=== PATIENT | male | born 1970 | race Caucasian/White ===

== ENCOUNTER 2020-08-22 10:30 | Outpatient (RCR) | payer OTHER, SELFPAY | END 2020-09-12 11:16 | disposition other institution (70) | LOC: HO.PT 10:30 | PROVIDERS: PCP Internal Medicine; Visit Provider Internal Medicine | DX: M54.41 Lumbago with sciatica, right side (principal) | CPT/HCPCS: 97110; 97162 ==

== ENCOUNTER 2020-10-24 09:17 | Outpatient (REF) | payer OTHER, SELFPAY | END 2020-10-24 09:18 | disposition home or self-care (01) | LOC: HO.MRI 09:17 | PROVIDERS: PCP Internal Medicine; Visit Provider Internal Medicine | DX: Z13.89 Encounter for screening for other disorder (principal) ==

== ENCOUNTER → 2020-12-19 09:01 | Outpatient (BNVA) | payer OTHER, SELFPAY | PROVIDERS: PCP Internal Medicine; Visit Provider Physician Assistant | CPT/HCPCS: Q3014 ==

== ENCOUNTER 2021-03-25 10:37 | Day surgery (SDC) | payer OTHER, SELFPAY ==
--- NOTE | 2021-03-21 08:46 | HO.ANESPROP2 ---
Documented by User: Naz Bullard 03/21/21 08:46 HPI - Anesthesia Eval Consult details Narrative: 50yo M for Colonoscopy methadone daily PMFSH Active Problems Active Problems: All Active Problems (Updated 02/05/21 @ 15:34 by Jalyn Cortes) HTN (hypertension) (Acute) Encounter for screening colonoscopy (Acute) HIV (human immunodeficiency virus infection) (Acute) Past Medical History Medical History COVID-19 vaccine administered HIV (human immunodeficiency virus infection) HTN (hypertension) Hx of substance abuse Family History Family History Mother Hypertension Social History Social History Household Members: Significant Other Alcohol intake: never Patient Tobacco Use Status: Current everyday Tobacco user Tobacco use type: Cigarette Cigarettes Per Day: 3 Years Smoked: 39 Smoked in Last 30 Days: Yes Use of substances other than those prescribed or required for medical reasons: No Substance Use Type: Crack/Cocaine, Former Substance User and Heroin Are you DNR?: No Advance Directives: No Advance Directives Information Provided: Yes Current occupational status: unemployed and disabled Meds Allergies Allergy/AdvReac Type Severity Reaction Status Date / Time No Known Allergies Allergy Verified 12/19/20 09:02 Home Medications Medication Instructions Recorded Confirmed Last Taken Type bictegravir 50 mg-emtricitabine 1 tab PO DAILY 12/19/20 02/05/21 03/25/21 06:00 History 200 mg-tenofovir alafenam 25 mg tablet hydrochlorothiazide 12.5 mg tablet 12.5 mg PO DAILY 12/19/20 02/05/21 Unknown History methadone 10 mg/5 mL oral solution 70 mg PO DAILY ml 12/19/20 02/05/21 03/25/21 06:00 History Exam Exam Date and Time: March 21, 2021 0846 Assessment and Plan Assessment Anesthesia Assessment: Chart Reviewed Documented by User: Tamara Valero 03/25/21 11:52 FOR[facility]LY [facility], [facility] Past Medical History Medical History COVID-19 vaccine administered HIV (human immunodeficiency virus infection) HTN (hypertension) Hx of substance abuse Family History Family History Mother Hypertension Family history of problems with anesthesia: No Surgical History History of Problems with Anesthesia: No (Never had anesthesia) Social History Social History Household Members: Significant Other Alcohol intake: never Patient Tobacco Use Status: Current everyday Tobacco user Tobacco use type: Cigarette Cigarettes Per Day: 3 Years Smoked: 39 Smoked in Last 30 Days: Yes Use of substances other than those prescribed or required for medical reasons: No Substance Use Type: Crack/Cocaine, Former Substance User and Heroin Are you DNR?: No Advance Directives: No Advance Directives Information Provided: Yes Current occupational status: unemployed and disabled Meds Allergies Allergy/AdvReac Type Severity Reaction Status Date / Time No Known Allergies Allergy Verified 12/19/20 09:02 Home Medications Medication Instructions Recorded Confirmed Last Taken Type bictegravir 50 mg-emtricitabine 1 tab PO DAILY 12/19/20 02/05/21 03/25/21 06:00 History 200 mg-tenofovir alafenam 25 mg tablet hydrochlorothiazide 12.5 mg tablet 12.5 mg PO DAILY 12/19/20 02/05/21 Unknown History methadone 10 mg/5 mL oral solution 70 mg PO DAILY ml 12/19/20 02/05/21 03/25/21 06:00 History Exam Height,Weight and Vital Signs: Vital Signs Temp Pulse Resp BP Pulse Ox 03/25/21 11:14 98.8 F 64 16 101/71 97 Airway Mallampati Class: II TM Dist: >3cm Neck ROM: Full Loose/Missing/Broken Teeth: Yes (Edentulous) Heart: RRR Lungs: CTAB Assessment and Plan Assessment Anesthesia Assessment: Anesthesia Plan Discussed and Chart Reviewed Final Anesthetic Review NPO: Yes ASA Class: II Final Preanesthetic Review: No Changes in Pt Med Stat, Meds/Allgs Chart Reviewed, Consent Obtained/Reviewed and Anes Risks/Benef Reviewed Patient Risk: Low Procedure Risk: Low Assessment/Block/Sedation in SS: Assess/Block/Sedation-SS Anesthetic Plan Anesthetic Plan: MAC: Disposition: Standard PACU
[2021-03-25 11:14] VITALS: BP 101/71; PULSE 64; RESP 16; TEMP 37.1; O2SAT 97; BMI 33.9
[2021-03-25] MEDS: Lactated Ringers 1,000 ML 100 ML IVCONT (11:30)
--- NOTE | 2021-03-25 12:31 | W.PM.OPN ---
Operative Note Operative Note Date of Service: 03/25/21 Narrative: Pre-op diagnosis: Colon cancer screening Post-op diagnosis: other (Colon polyps, diverticulosis, hemorrhoids) Procedure: COLONOSCOPY TO CECUM WITH BIOPSIES AND SNARE POLYPECTOMY Consent: Indications for the procedure and potential complications of bleeding, perforation, reaction to medications and missed diagnosis were discussed with the patient and informed consent was obtained. Instrument: Olympus PCF H 190 L variable stiffness pediatric colonoscope Monitoring: Vital signs and clinical assessment, intermittent blood pressure monitoring, continuous EKG monitoring, Pulse oximetry and Carbon Dioxide monitoring were done throughout the procedure. Colon withdrawl time was 20 minutes. Procedure: The patient was placed in the left lateral decubitis position and pre-procedure medications were administered. After a digital rectal examination of the ano-rectum, the video colonoscope was inserted into the rectum and advanced through the colon to the cecum. The colonoscope was slowly withdrawn in a retrograde panoramic fashion and the colon mucosa was carefully examined including a retroflexed view of the rectum. Findings and interventions are described below. Procedure Difficulty: Without difficulty Findings: Terminal Ileum: Not evaluated Cecum: Two 5-7 mm sessile polyps removed with a cold snare. Three 2-3 mm sessile polyps removed with the cold biopsy Ascending Colon: Normal Transverse Colon: A 3-4 mm sessile polyp removed with cold biopsy. Descending Colon: Moderate diverticulosis Sigmoid Colon: Moderate diverticulosis Rectum: A 2 cm ulcerated, pedunculated polyp at 15 cms - removed with a hot snare Ano-rectum: Moderate internal hemorrhoids Colon preparation: Good after some irrigation Impression and Post Procedure Diagnosis: Colonoscopy Findings: Seven polyps removed Moderate diverticulosis seen in the left colon Moderate hemorrhoids on retroflexed exam. Plan: Await pathology results Patient has an appointment on 04/10/21 in the GI Clinic with ITALO Rodriguez. Repeat Colonoscopy interval based on path results - in 3-5 years if polyps are adenomatous and 10 years if polyps are hyperplastic. Above findings were reviewed with the patient and colon polyps and diverticulosis handouts were given in the discharge area Surgeon: Josué Pace MD Anesthesia: MAC (Amy Reyes CRNA) Was an Medical Records Library Professor used for this Procedure?: Yes Medical Records Library Professor: Omar Acevedo Estimated blood loss (mL): 0 Pathology: other (A- CECAL POLYPS B- TRANSVERSE COLON POLYP C- RECTAL POLYP AT 10CM) Condition: stable Disposition: PACU
--- NOTE | 2021-03-25 12:31 | MHC.SHP ---
Pre-Procedural Eval Section A The patient is an INPATIENT: No The History & Physical has been completed within 30 days and I have reviewed it.: No Section B Chief Complaint: screening Details of Present Illness: Colon cancer screening Relevant Family History (Specify if Yes): No Relevant Social History: Tobacco Use Present Medications: see Short Stay Collaborative assessment Medical History: Significant History (HIV (human immunodeficiency virus infection)) History of Previous Operations: No relevant previous surgery Allergies: Allergies Allergy/AdvReac Type Severity Reaction Status Date / Time No Known Allergies Allergy Verified 12/19/20 09:02 Review of Systems Sugical H&P ROS: Negative: Constitution, Cardiovascular, Respiratory and Gastrointestinal Exam Surgical H&P Exam: Normal: Heart, Normal: Lungs, Normal: Extremities and Normal: Abdomen Plan Diagnosis/Plan: Unchanged I have reviewed the history and physical and performed a pertinent physical examination on my patient. No changes have occurred unless specified.
[2021-03-25 13:22] VITALS: BP 114/77; PULSE 63; RESP 16; TEMP 37.4; O2SAT 99
[2021-03-25 13:36] VITALS: BP 132/87; PULSE 60; RESP 16; TEMP 36.4; O2SAT 100
== END 2021-03-25 13:54 | disposition home or self-care (01) ==
PROVIDERS: PCP Internal Medicine; Visit Provider Internal Medicine Gastroenterology
PROC: 0DJD8ZZ Inspection of Lower Intestinal Tract, Via Natural or Artificial Opening Endoscopic (ICD-10-PCS; CPT 45378; principal; 2021-03-25 12:40)
DX: Z12.11 Encounter for screening for malignant neoplasm of colon (principal); K63.5 Polyp of colon; K62.1 Rectal polyp; K57.30 Diverticulosis of large intestine without perforation or abscess without bleeding; K64.8 Other hemorrhoids; B20 Human immunodeficiency virus [HIV] disease; I10 Essential (primary) hypertension; F11.10 Opioid abuse, uncomplicated; F17.210 Nicotine dependence, cigarettes, uncomplicated; Z79.899 Other long term (current) drug therapy
CPT/HCPCS: 45385; 45380; 88305

== ENCOUNTER → 2021-04-10 13:11 | Outpatient (BNVA) | payer OTHER, SELFPAY | PROVIDERS: Visit Provider Physician Assistant | DX: Z13.89 Encounter for screening for other disorder (principal) | CPT/HCPCS: Q3014 ==

== ENCOUNTER 2021-05-28 10:00 | Outpatient (REF) | payer OTHER, SELFPAY ==
--- NOTE | ~2021-05-28 | US_ITS ---
EXAMINATION: US ABDOMEN LIMITED CLINICAL INFORMATION: ALAS (nonalcoholic steatosis). COMPARISON: None TECHNIQUE: Real-time imaging of the right upper quadrant abdominal viscera. FINDINGS: PANCREAS: Majority obscured by overlying bowel gas. No definite suspicious mass or peripancreatic fluid seen. LIVER: Increased in echogenicity with a coarsened appearance consistent with hepatocellular disease. The liver is normal in size. Within the right lobe there is a hypoechoic 5 mm structure.Within the right lobe there is also noted to be a 7 mm hypoechoic circumscribed lesion. These are too small to characterize and MRI would be of help in further evaluation if clinically indicated. There is no intrahepatic biliary duct dilatation seen. GALLBLADDER: Normal. The gallbladder is physiologically distended without evidence of stones, sludge, polyps, wall thickening or pericholecystic fluid. COMMON BILE DUCT: Normal in caliber measuring 0.3 cm in diameter. RIGHT KIDNEY: Normal. No hydronephrosis. No renal calculi or focal parenchymal lesions. The kidney measures 8.8 cm in maximum dimension. FREE FLUID: None. US/US abdomen limited IMPRESSION: Increased echogenicity of the liver with heterogeneous appearance consistent with hepatocellular disease. 2 hypoechoic lesions within the right lobe of liver largest being 7 mm in diameter for which MRI would be of help in further evaluation.
== END 2021-05-28 10:01 | disposition home or self-care (01) ==
LOC: HO.HMGCX 10:00
PROVIDERS: Visit Provider Internal Medicine Gastroenterology
DX: K75.81 Nonalcoholic steatohepatitis (NASH) (principal)
CPT/HCPCS: 76705

== ENCOUNTER 2021-07-17 09:35 | Outpatient (REF) | payer OTHER, SELFPAY ==
[2021-07-17 10:36] LABS: MANUAL DIFF FLAG NO
[2021-07-17 10:46] LABS: Basophils Percent Auto 0.5 % (0-2); Eosinophils Absolute Auto 0.1 X10*3/uL (0.0-0.4); Eosinophils Percent Auto 1.4 % (0-4); Hematocrit 43.4 % (42-52); Hemoglobin 14.1 g/dl (14.0-18.0); Imm Gran Abs Auto 0.01 X10*3/uL (0.00-0.03); Imm Gran Pct Auto 0.2 % (0.0-0.4); Lymphocytes Absolute Auto 1.5 X10*3/uL (1.2-4.9); Lymphocytes Percent Auto 33.5 % (20-40); Mean Corpuscular HGB Conc 32.5 g/dl (31.0-36.0); Mean Corpuscular Hemoglobin 29.6 pg (27.0-33.0); Mean Platelet Volume 11.7 fL (9.4-12.4); Monocytes Absolute Auto 0.5 X10*3/uL (0.1-1.2); Monocytes Percent Auto 10.5 % (2-11); Neutrophils Absolute Auto 2.4 X10*3/uL (2.0-8.3); Neutrophils Percent Auto 53.9 % (45-73); Platelet Count 187 X10*3/uL (160-400); Red Blood Count 4.77 X10*6/uL (4.60-5.80); Red Cell Distribution Width 13.6 % (11.0-16.0); White Blood Count 4.4 X10*3/uL (4.8-10.8)
[2021-07-17 10:48] LABS: Prothrombin Time 11.6 SEC (9.9-13.0)
[2021-07-17 11:21] LABS: Alanine Aminotransferase 30 U/L (0-40); Albumin Level 4.3 g/dL (3.5-5.0); Alkaline Phosphatase 64 U/L (39-117); Anion Gap 12 (12-20); Aspartate Amino Transferase 24 U/L (5-37); Bilirubin Total 0.3 mg/dL (0.0-1.0); Blood Urea Nitrogen 8 mg/dL (9-16); Calcium 9.9 mg/dL (8.4-10.2); Carbon Dioxide 31 mmol/L (22-29); Chloride 106 mmol/L (96-108); Estimated Glomerular Filt Rate > 60; Glucose Random 80 mg/dL (60-115); Potassium 4.7 mmol/L (3.3-5.1); Sodium 144 mmol/L (135-145); Total Protein 8.1 g/dL (6.5-8.0)
[2021-07-18 04:29] LABS: Syphilis Screen Nonreactive (Nonreactive)
[2021-07-18 15:30] LABS: HIV RNA PCR Qn Copies <20 NOT DETECTED copies/mL (NOT DETECTED); HIV RNA PCR Qn Log Copies <1.30 NOT DETECTED (NOT DETECTED)
[2021-07-18 18:32] LABS: HCV Log PCR <1.18 NOT DETECTED Log IU/mL (NOT DETECTED); HepC Viral Load <15 NOT DETECTED IU/mL (NOT DETECTED)
[2021-07-19 23:57] LABS: TS Negative Control Passed; TS Panel A 0; TS Panel B 3; TS Positive Control Passed; TSpotTB Negative (Negative)
[2021-07-21 11:56] LABS: Absolute CD3 Count 923 cells/uL (840-3060); Absolute CD4 Count 336 cells/uL (490-1740); Absolute CD8 Count 603 cells/uL (180-1170); Absolute Lymphocytes 1457 cells/uL (850-3900); CD4 CD8 Ratio 0.56 (0.86-5.00); Percent CD3 Cells 63 % (57-85); Percent CD4 Cells 23 % (30-61); Percent CD8 Cells 41 % (12-42)
[2021-07-21 12:51] LABS: Alpha Fetoprotein 6.2 ng/mL (<6.1)
== END 2021-07-17 09:36 | disposition home or self-care (01) ==
LOC: HO.LAB 09:35
PROVIDERS: Absent Provider Internal Medicine; PCP Internal Medicine; Visit Provider Internal Medicine Gastroenterology
DX: B20 Human immunodeficiency virus [HIV] disease (principal); K75.81 Nonalcoholic steatohepatitis (NASH)
CPT/HCPCS: 36415; 80053; 82105; 85025; 85610; 86359; 86360; 86481; 86780; 87522; 87536

== ENCOUNTER 2021-08-07 14:32 | Outpatient (REF) | payer OTHER, SELFPAY ==
--- NOTE | ~2021-08-07 | CT_ITS ---
EXAMINATION: CT ABDOMEN (LIVER) WITHOUT AND WITH IV CONTRAST CLINICAL INFORMATION: 51-year-old male with history of nonalcoholic steatosis. Hypoechoic liver lesion seen on ultrasound examination. Hepatomegaly. COMPARISON: Ultrasound abdomen from 05/28/2021. TECHNIQUE: A volumetric helical CT acquisition of the abdomen was performed without and with intravenous administration of 85 mL Omnipaque 350. The contrast enhanced images were acquired in the arterial and portal venous phases. Coronal and sagittal reformatted images were generated at the technologist workstation. This CT examination was performed using dose optimization techniques as appropriate, variously including the following: *Automated exposure control *Adjustment of mA and/or kV according to patient size (this includes techniques or standardized protocols for targeted exams where dose is matched to indication/reason for exam; i.e. extremities or head) *Use of iterative reconstruction technique DLP: 618 mGy-cm. FINDINGS: LUNG BASES: Normal. LIVER, GALLBLADDER, AND BILIARY TREE: Liver is normal in size. The capsular surface of the liver has nodular contour, consistent with cirrhosis. The liver parenchyma is diffusely hypodense compared to the spleen on the arterial and venous phase images. Mild steatosis is suspected. There are no arterial phase hyperenhancing liver lesions. Also, no discrete nodules are detected on the venous phase images. There are no foci of contrast enhancement with subsequent washout or capsular features. Gallbladder is normal. No intrahepatic or extrahepatic bile duct dilatation. PANCREAS: Normal. No evidence of pancreatic mass, edema or ductal dilatation. SPLEEN: Normal. ADRENAL GLANDS: Normal. KIDNEYS AND URETERS: Kidneys are normal in size and enhance symmetrically. No renal mass or perinephric fluid. There are a few calyceal stones of the right and left lower pole that measure up to 0.3 cm in maximum dimension. No large renal calculi or hydronephrosis. The visualized proximal ureters are normal. BOWEL AND PERITONEUM: Stomach and visualized bowel are normal. No focal bowel wall thickening. No mesenteric fat stranding or ascites. No pneumoperitoneum. ABDOMINAL WALL: Unremarkable. LYMPH NODES: No pathologic sized lymph nodes. VASCULATURE: Abdominal aorta is normal in caliber with the celiac trunk, SMA and renal arteries are widely patent. Inferior vena cava is normal. Splenic, portal and hepatic veins are normal; no venous thrombosis. MUSCULOSKELETAL: Unremarkable. CT/CT liver 3 phase IMPRESSION: * There appears to be mild steatosis of the cirrhotic liver. * There are no discrete nodules within the liver. No evidence of hepatocellular carcinoma. * Small bilateral renal stones are detected.
[2021-08-07] MEDS: iohexoL 350 MG/ML 100 ML INFUS..BTL 85 ML IV (15:24)
== END 2021-08-07 14:33 | disposition home or self-care (01) ==
LOC: HO.CT 14:32
PROVIDERS: Visit Provider Internal Medicine Gastroenterology
DX: R16.0 Hepatomegaly, not elsewhere classified (principal); K75.81 Nonalcoholic steatohepatitis (NASH)
CPT/HCPCS: 74170; Q9967

== ENCOUNTER 2023-12-02 12:16 | Outpatient (REF) | payer OTHER, SELFPAY ==
[2023-12-02 13:18] LABS: MANUAL DIFF FLAG NO
[2023-12-02 13:37] LABS: Basophils Percent Auto 0.4 % (0-2); Eosinophils Percent Auto 1.1 % (0-4); Hematocrit 39.8 % (42.0-52.0); Hemoglobin 12.9 g/dl (14.0-18.0); Imm Gran Abs Auto 0.01 X10*3/uL (0.00-0.03); Imm Gran Pct Auto 0.4 % (0.0-0.4); Lymphocytes Percent Auto 38.7 % (20-40); Mean Corpuscular HGB Conc 32.4 g/dl (31.0-36.0); Mean Corpuscular Hemoglobin 28.1 pg (27.0-33.0); Mean Corpuscular Volume 86.7 fL (80.0-98.0); Mean Platelet Volume 10.7 fL (9.4-12.4); Monocytes Absolute Auto 0.3 X10*3/uL (0.1-1.2); Monocytes Percent Auto 11.7 % (2-11); Neutrophils Absolute Auto 1.3 x10*3/uL (2.0-8.3); Neutrophils Percent Auto 47.7 % (45-73); Platelet Count 160 X10*3/uL (160-400); Red Blood Count 4.59 X10*6/uL (4.60-5.80); White Blood Count 2.7 X10*3/uL (4.8-10.8)
[2023-12-02 13:53] LABS: Alanine Aminotransferase 26 U/L (0-40); Albumin Level 3.4 g/dL (3.5-5.0); Alkaline Phosphatase 94 U/L (39-117); Anion Gap 12 (12-20); Aspartate Amino Transferase 31 U/L (5-37); Blood Urea Nitrogen 11 mg/dL (9-16); Calcium 10.2 mg/dL (8.4-10.2); Carbon Dioxide 31 mmol/L (22-29); Chloride 101 mmol/L (96-108); Cholesterol 111 mg/dL (<200); Estimated Glomerular Filt Rate > 60; Glucose Random 84 mg/dL (60-115); HDL Cholesterol 41 mg/dL (>40); LDL Cholesterol Calculated 58 mg/dL (<100); Potassium 4.5 mmol/L (3.3-5.1); Sodium 139 mmol/L (135-145); Total Protein 9.9 g/dL (6.5-8.0); Triglycerides 60 mg/dL (<150)
[2023-12-02 14:09] LABS: Bilirubin Total 0.3 mg/dL (0.0-1.0); Reflex LDLD? No
[2023-12-02 14:59] LABS: CT PCR NOT DETECTED (Not Detect.); NG PCR NOT DETECTED (Not Detect.)
[2023-12-03 08:23] LABS: ~HepC Num1 9.59 S/CO (0.00-0.79)
[2023-12-03 08:24] LABS: ~Hepatitis C Antibody Reactive (Nonreactive)
[2023-12-03 14:19] LABS: Absolute CD3 Count 683 cells/uL (840-3060); Absolute CD4 Count 42 cells/uL (490-1740); Absolute CD8 Count 611 cells/uL (180-1170); Absolute Lymphocytes 958 cells/uL (850-3900); CD4 CD8 Ratio 0.07 (0.86-5.00); Percent CD3 Cells 71 % (57-85); Percent CD4 Cells 4 % (30-61); Percent CD8 Cells 64 % (12-42)
[2023-12-03 18:53] LABS: HIV RNA PCR Qn Copies 115000 copies/mL (NOT DETECTED); HIV RNA PCR Qn Log Copies 5.06 (NOT DETECTED)
[2023-12-03 19:29] LABS: RPR Rapid Plasma Reagin NON-REACTIVE (NON-REACTIVE)
[2023-12-05 17:09] LABS: TS Negative Control Passed; TS Panel A 0; TS Panel B 3; TS Positive Control Passed; TSpotTB Negative (Negative)
[2023-12-06 15:33] LABS: HCV Log PCR <1.18 NOT DETECTED Log IU/mL (NOT DETECTED); HepC Viral Load <15 NOT DETECTED IU/mL (NOT DETECTED)
== END 2023-12-02 12:17 | disposition home or self-care (01) ==
LOC: HO.HHCL 12:16
PROVIDERS: Visit Provider Student in an Organized Health Care Education/Training Program
DX: Z11.1 Encounter for screening for respiratory tuberculosis (principal); B20 Human immunodeficiency virus [HIV] disease
CPT/HCPCS: 0353U; 36415; 80053; 80061; 85025; 86359; 86360; 86481; 86592; 86803; 87522; 87536

== ENCOUNTER 2024-05-04 02:47 | Emergency (ER) | payer OTHER, SELFPAY ==
[2024-05-04 02:50] VITALS: BP 134/80; PULSE 91; O2SAT 99
[2024-05-04 02:51] VITALS: BP 121/74; PULSE 81; RESP 20; TEMP 37.3; O2SAT 97; BMI 19.4
[2024-05-04 03:01] VITALS: BP 121/74; PULSE 81; RESP 20; TEMP 37.3; O2SAT 97
--- NOTE | 2024-05-04 03:16 | PC.NURSE ---
patient changed into hospital clothing, belongings secured with assistance of security
--- NOTE | 2024-05-04 03:26 | PC.NURSE ---
Belongings placed in [facility]
[2024-05-04 06:00] VITALS: BP 100/56; PULSE 60; RESP 16; TEMP 36.8; O2SAT 98
--- NOTE | 2024-05-04 06:51 | ED_ITS ---
HPI - General Adult General Chief complaint: Overdose Stated complaint: od Time Seen by Provider: 05/04/24 06:33 Source: patient and EMS Mode of arrival: EMS Limitations: no limitations History of Present Illness ED Provider: Rizwana Zamora PA-C HPI narrative: Patient is a 54 year old assigned male at with a history of HTN, HIV, and opiate abuse presenting to the emergency department today after an overdose. Patient was found down by a bystander who gave Narcan and the patient awoke. Patient states that he has no complaints at this time. Patient denies any dizziness, lightheadedness, abdominal pain, nausea, vomiting, fever, chills, blurry vision, double vision, loss of vision, chest pain, difficulty breathing, shortness of breath, back pain, night sweats, pain with urination, increased urinary frequency, increased urinary urgency, blood in his urine or stool, syncope or a near syncopal episode, recent trauma or falls, bowel incontinence, bladder incontinence, or any other complaints at this time. Relieving factors: none Exacerbating factors: none Associated symptoms: denies other symptoms Treatments prior to arrival: other (Narcan by bystander) Related Data Home Medications ?Medication ?Instructions ?Recorded ?Confirmed bictegravir 50 mg-emtricitabine 1 tab PO DAILY 12/19/20 04/10/21 200 mg-tenofovir alafenam 25 mg tablet (Biktarvy) hydrochlorothiazide 12.5 mg tablet 12.5 mg PO DAILY 12/19/20 04/10/21 methadone 10 mg/5 mL oral solution 115 mg PO DAILY 12/19/20 05/04/24 Previous Rx's ?Medication ?Instructions ?Recorded lorazepam 1 mg tablet 1 mg PO DAILY PRN anxiety #2 tabs 06/13/21 Allergies Allergy/AdvReac Type Severity Reaction Status Date / Time No Known Allergies Allergy Verified 05/04/24 02:59 Review of Systems Constitutional: Constitutional: Reports no additional constitutional complaints, Denies chills, Denies fever(s) and Denies night sweats Eyes: Eyes: Reports no additional eye complaints, Denies blurry vision, Denies change in vision, Denies diplopia, Denies eye discharge, Denies loss of vision and Denies eye pain ENT: Denies dizziness Cardiovascular: Cardiovascular: Reports no additional cardiovascular complaints, Denies chest pain, Denies lightheadedness, Denies Loss of Consciousness and Denies dyspnea Respiratory: Respiratory: Reports no additional respiratory complaints and Denies dyspnea Gastrointestinal: Gastrointestinal: Reports no additional gastrointestinal complaints, Denies abdominal pain, Denies melena, Denies hematochezia, Denies change in bowel habits and Denies change in stool character Genitourinary: Genitourinary: Reports no additional male genitourinary complaints, Denies hematuria, Denies oliguria, Denies difficulty urinating, Denies dysuria, Denies urinary frequency, Denies urinary hesitancy, Denies urinary incontinence and Denies urinary urgency Musculoskeletal: Musculoskeletal: Reports no additional musculoskeletal complaints, Denies numbness and Denies tingling Neurologic: Denies dizziness, Denies loss of vision, Denies numbness and Denies tingling Psychiatric: Psychiatric: Reports no additional psychiatric complaints Endocrine: Endocrine: Reports no additional endocrine complaints Hematologic/Lymphatic: Hematologic/Lymphatic: Reports no additional hematologic/lymphatic complaints Allergic/Immunologic: Allergic/Immunologic: Reports no additional allergic/immunologic complaints [facility] Past Medical History Attestation statement: The following information was validated with the patient. Source: old records reviewed and nursing notes reviewed Medical History HTN (hypertension) Hx of substance abuse COVID-19 vaccine administered HIV (human immunodeficiency virus infection) Family History Family History Mother Hypertension Social History Social History Household Members: Significant Other Alcohol intake: never Patient Tobacco Use Status: Current everyday Tobacco user Tobacco use type: Cigarette Cigarettes Per Day: 3 Years Smoked: 39 Smoked in Last 30 Days: No Use of substances other than those prescribed or required for medical reasons: Yes Substance Use Type: Crack/Cocaine, Former Substance User and Heroin Advance Directives: No Advance Directives Information Provided: Yes Do you have a plan to hurt others: No Plan Current occupational status: unemployed and disabled Physical Exam ED Vital Signs: Vital Signs - 24 hr 05/04/24 02:51 05/04/24 03:01 05/04/24 06:00 Temperature 99.2 F 99.2 F 98.2 F Pulse Rate 81 81 60 Respiratory Rate 20 20 16 Blood Pressure 121/74 121/74 100/56 L Pulse Oximetry 97 97 98 Oxygen Delivery Method Room Air Room Air Room Air 05/04/24 11:28 Temperature 98 F Pulse Rate 80 Respiratory Rate 16 Blood Pressure 142/76 H Pulse Oximetry 98 Oxygen Delivery Method Room Air BMI result Body Mass Index 19.4 Const General: cooperative, no acute distress, alert and awake Nutritional Appearance: well nourished Orientation/consciousness: patient oriented x3 Limitations: no limitations HENMT Head: Yes normal to inspection and Yes atraumatic Ears: hearing grossly normal bilaterally and external ears normal General nose exam: Normal external nose present, no nasal discharge noted and no epistaxis Face and sinus: Yes normal facial exam, No abrasion and No laceration Mouth: Normal oral and palatal mucosa present, no drooling and no muffled voice Eyes General: appearance normal, both eyes and all related structures Periorbital: periorbital findings normal Eyelids: Yes eyelids normal Conjunctivae: conjunctivae normal Pupils: Equal, round and reactive pupils present EOM: EOMs intact bilaterally Neck Neck: Yes normal visual inspection, Yes full ROM and Yes no lymphadenopathy Chest Chest palpation & inspection: normal inspection of the chest Resp Effort & Inspection: normal respiratory effort and able to speak in complete sentences GI Inspection: Yes normal to inspection Neuro General: patient oriented x3 and moves all extremities Cranial nerves: Yes Equal, round and reactive pupils present Cognition (Neuro): normal cognition Extrem General: Yes normal to inspection, Yes full ROM and Yes capillary refill normal Psych Appearance: grossly normal Mental Status: mental status grossly normal Affect: normal affect Attitude: cooperative Thought process: Normal thought process present Thought content: Normal thought content present Insight: Good insight present (Psych) Medications Administered Discontinued Medications Generic Name Dose Route Start Last Admin Trade Name Charles PRN Reason Stop Dose Admin Methadone HCl 115 mg 05/04/24 09:48 05/04/24 11:22 Methadone Hcl 20 Mg/2 Ml Oral.Conc PO 05/04/24 09:49 115 mg ONCE ONE Administration Naloxone HCl 8 mg 05/04/24 10:52 05/04/24 11:22 Naloxone Hcl Nasal Take Home 4 Mg [place] NOSTRILALT 05/04/24 10:53 8 mg ONCE ONE Administration Medical Decision Making Medical Decision Making MDM Narrative: Patient is a 54 year old assigned male at with a history of HTN, HIV, and opiate abuse presenting to the emergency department today after an opiate overdose. Patient's physical exam was unremarkable. Patient met with the addiction team who recommended giving him his Methadone dose and discharging him. I explained my physical exam findings to the patient. I answered all questions asked by the patient. I stressed the importance of the patient taking his medication as directed (either prescribed or as the over the counter packaging recommends). I stressed the importance of the patient following up with his primary care provider. I stressed the importance of the patient returning to the emergency department immediately if his symptoms were to worsen or if he were to develop any dizziness, shortness of breath, difficulty breathing, chest pain, blurry vision, loss of vision, nausea, vomiting, abdominal pain, fever, chills, back pain, or any other complaints. Patient verbalized agreement and understanding with this treatment plan and discharge. Observation care revealed the the patient does not meet medical necessity for hospitalization. Final disposition discussed with the patient who verbalized understanding and agreement. Patient completed observation care at 1128, total time spent in observation care was 4 hours and 37 minutes. Differential Diagnosis Differential Diagnoses: The differential diagnosis associated with the presentation includes Overdose Accidental overdose Opiate use Opiate abuse Admission/Observation Consideration of admission/observation: Escalation of care including admission/observation considered Patient would have been admitted to the hospital had his clinical presentation warranted hospital admission. Consult Healthcare Provider Management of the patient was discussed with: Behavioral Health Provider (spoke to the addiction team as noted in the MDM Rationale portion of this note. ) Independent Historian Clinical information obtained from an independent historian. History obtained from or confirmed by: EMS (EMS provided additional history and confirmed the history provided by the patient.) Discharge Plan Discharge Clinical Impression: Opiate abuse, continuous Patient Disposition: Home, Self-Care Instructions: Opioid Use Disorder (ED) Additional Instructions: Follow up with your primary care provider. Return to the emergency department immediately if your symptoms worsen or if you develop any dizziness, shortness of breath, difficulty breathing, chest pain, blurry vision, loss of vision, nausea, vomiting, abdominal pain, fever, chills, back pain, or any other complaints. Prescriptions: No Action lorazepam 1 mg tablet 1 mg PO DAILY PRN (Reason: anxiety) Qty: 2 0RF Rx Instructions: Please take 1 tablet [address] scan Biktarvy 50-200-25 mg tablet 1 tab PO DAILY hydrochlorothiazide 12.5 mg tablet 12.5 mg PO DAILY methadone 10 mg/5 mL solution 115 mg PO DAILY Referrals: [facility] [place] Family Medicine [Provider Group] (Call to establish and follow up with a primary care provider. If you already have a primary care provider, please follow up with them.) [facility] [place] Primary Florinda De Jesus [Provider Group] [facility] [place] Primary CareGregorio [Provider Group] Interventions: ED Discharge Assessment Last Done: 05/04/24 11:28 Discharge Date/Time: 05/04/24 11:30 Print Language: Frisian
--- NOTE | 2024-05-04 09:46 | PC.NURSE ---
Verified pt.'s Methadone dose with [facility] in [place]. Pt. gets a daily dose of 115mg Methadone, and last dosed yesterday, 05/03 @ 06:18.
--- NOTE | 2024-05-04 10:32 | HO.SUDE ---
Met with pt in [id number] after pt presented after overdose requiring Narcan. Pt laying in bed, awake, alert, easily engages in conversation, appears comfortable. Pt reports feeling okay. States I used too much. Pt reports using heroin/fentanyl, close to a bundle, IV, which resulted in overdose. Pt reports prior to that last use was 4 or 5 days ago. Pt reports he usually uses 1 or 2 bags 2-3 times weekly. Pt denies other substances. Pt reports one other overdose approx 1 year ago. Pt reports 3 [facility] admissions, last 2 years ago. Pt reports longest time in recovery was 7 years ([id number]) while in [place] [facility]. Pt is currently on methadone, 115 mg daily through [facility] in [facility] almost 3 years. Pt reports support system is comprised of his . Pt reports he receives social security but does side work occasionally. Discussed recovery resources and supports, including inpatient and outpatient options. Pt is not interested in inpatient treatment, is interested in a reading coach. Pt would like to receive methadone dose and dc from ED. Pt denies questions or concerns for t/w. Discussed with provider and RN. head field hockey coach referral placed.
--- NOTE | 2024-05-04 11:17 | HE.PHANOTE ---
Methadone Pt receives from [facility] ([phone]). THONY Juarez at facility, confirmed pt last received 115mg on 05/03 @ 0618.
[2024-05-04] MEDS: methADONE HCl 20 MG/2 ML ORAL.CONC 115 MG PO (11:22)
[2024-05-04] MEDS: Naloxone HCl Nasal TAKE HOME 4 MG SPRAY 8 MG NOSTRILALT (11:22)
[2024-05-04 11:28] VITALS: BP 142/76; PULSE 80; RESP 16; TEMP 36.6; O2SAT 98
== END 2024-05-04 11:30 | disposition home or self-care (01) ==
PROVIDERS: Emergency Provider Emergency Medicine
DX: F11.10 Opioid abuse, uncomplicated (principal); I10 Essential (primary) hypertension; B20 Human immunodeficiency virus [HIV] disease; F17.210 Nicotine dependence, cigarettes, uncomplicated
CPT/HCPCS: 99284; 99285